=== PATIENT | female | born 1935 | race Caucasian/White ===

== ENCOUNTER 2018-09-14 11:27 | Emergency (ER) | payer MEDICARE, OTHER ==
[~2018-09-14 11:27] MED LIST: AVAPRO300 M1 PO; CITALOPRAM40 MG PO; CLOPIDOGREL75 MG PO; DILTIAZEM ER240 MG PO; LEVAQUIN 5500 MG/TA1 PO; LEVOTHYROXIN0.125 MG PO; PANTOPRAZOLE SO40 MG PO; PERDIEM15 MG PO; SYNTHROID0.1 MG/TAB PO; VITAMIN B-121 TAB PO; VITAMIN D5000 I1 PO; ZANTAC300 MG PO
[2018-09-14] MEDS ORDERED: MEMANTINE HCL10 MG PO (12:00)
[2018-09-14] MEDS ORDERED: METOPROLOL SUCC25 M1 PO (12:01)
[2018-09-14] MEDS ORDERED: PROAIR HFA0.09 MG/AC IH (12:02)
[2018-09-14] MEDS ORDERED: ROSUVASTATIN CA20 MG PO (12:02)
[2018-09-14] MEDS ORDERED: FLUTICASON0.05 MG/Ac NS (12:02)
[2018-09-14] MEDS ORDERED: OCUVITE TABLET1 TAB PO (12:03)
[2018-09-14] MEDS ORDERED: ASPIRIN ADULT L81 M3 PO (12:03)
[2018-09-14] MEDS ORDERED: FIBER500 MG (12:04)
[2018-09-14] MEDS ORDERED: MIRALAX17 GM PO (12:05)
[2018-09-14] MEDS ORDERED: LEVOTHYROXIN0.088 MG PO (12:05)
[2018-09-14] MEDS ORDERED: APRESOLINE 25MG25 MG PO (12:05)
[2018-09-14] MEDS ORDERED: ISORDIL 20MG20 MG PO (12:05)
[2018-09-14 12:06] LABS: EOS # 0.1 (0.04-0.40); EOS % 2.1 % (1.0-5.0); HEMATOCRIT 38.5 % (37.0-47.0); HEMOGLOBIN 11.8 g/dL (12.5-16.0); MEAN CELL VOLUME 97 fl (78-100); MEAN CORPUSCULAR HEMOGLOBIN 30 pg (27-31); MEAN CORPUSCULAR HGB CONC 31 g/dL (33-37); MONO # 0.4 (0.20-0.80); NEU # 4.2 (1.40-6.50); PLATELET COUNT 150 K/mm3 (130-400); RED BLOOD COUNT 3.96 M/mm3 (4.10-5.30); RED CELL DISTRIBUTION WIDTH 16.6 % (11.5-14.5); WHITE BLOOD COUNT 5.4 K/mm3 (4.8-10.8)
[2018-09-14] MEDS ORDERED: FUROSEMIDE20 MG PO (12:06)
[2018-09-14] MEDS ORDERED: ELIQUIS2.5 MG PO (12:06)
[2018-09-14] MEDS ORDERED: DONEPEZIL HCL10 MG PO (12:06)
[2018-09-14 12:07] LABS: LYMPH# 0.7 (1.50-4.00)
[2018-09-14 12:22] LABS: ALBUMIN 3.9 g/dL (3.4-4.8); POTASSIUM 4.2 mmol/L (3.5-5.1)
[2018-09-14 12:23] LABS: CALCIUM 9.3 mg/dL (8.3-10.5)
[2018-09-14 12:24] LABS: TOTAL PROTEIN 6.6 g/dL (6.2-8.1)
[2018-09-14 12:26] LABS: TOTAL BILIRUBIN 0.8 mg/dL (0.2-1.2)
[2018-09-14 13:47] LABS: URINE APPEARANCE HAZY; URINE BILIRUBIN NEGATIVE (NEGATIVE); URINE BLOOD NEGATIVE (NEGATIVE); URINE COLOR YELLOW; URINE GLUCOSE NEGATIVE (NEGATIVE); URINE KETONE NEGATIVE (NEGATIVE); URINE LEUKOCYTE ESTERASE 1+ (NEGATIVE); URINE NITRATE NEGATIVE (NEGATIVE); URINE PROTEIN(semi-quant) NEGATIVE (NEGATIVE); URINE UROBILINOGEN NORMAL (NORMAL)
[2018-09-14 13:48] LABS: URINE WBC >50 /hpf (0-3)
[2018-09-14] MEDS ORDERED: CEFDINIR300 MG PO (14:00)
[2018-09-14 14:21] VITALS: BP 136/63
== END 2018-09-14 14:22 | disposition home or self-care (01) ==
LOC: ED 11:27
PROVIDERS: Nurse Practitioner Family
DX: N30.00 Acute cystitis without hematuria (principal); E86.0 Dehydration; K74.60 Unspecified cirrhosis of liver; Z90.710 Acquired absence of both cervix and uterus; Z90.49 Acquired absence of other specified parts of digestive tract; Z90.89 Acquired absence of other organs; Z98.890 Other specified postprocedural states
CPT/HCPCS: J7030

== ENCOUNTER 2018-09-30 15:10 | Emergency (ER) | payer MEDICARE, OTHER ==
[~2018-09-30] VITALS: Wt 55.3 kg
[~2018-09-30 15:10] MED LIST changes: +APRESOLINE 25MG25 MG PO; +ASPIRIN ADULT L81 M3 PO; +CEFDINIR300 MG PO; +DONEPEZIL HCL10 MG PO; +ELIQUIS2.5 MG PO; +FIBER500 MG; +FLUTICASON0.05 MG/Ac NS; +FUROSEMIDE20 MG PO; +ISORDIL 20MG20 MG PO; +LEVOTHYROXIN0.088 MG PO; +MEMANTINE HCL10 MG PO; +METOPROLOL SUCC25 M1 PO; +MIRALAX17 GM PO; +OCUVITE TABLET1 TAB PO; +PROAIR HFA0.09 MG/AC IH; +ROSUVASTATIN CA20 MG PO
[2018-09-30] MEDS ORDERED: LISINOPRIL10 MG PO (15:50)
[2018-09-30 15:51] LABS: EOS # 0.2 (0.04-0.40); EOS % 2.4 % (1.0-5.0); HEMATOCRIT 36.1 % (37.0-47.0); HEMOGLOBIN 11.1 g/dL (12.5-16.0); LYMPH# 1.1 (1.50-4.00); MEAN CELL VOLUME 98 fl (78-100); MEAN CORPUSCULAR HEMOGLOBIN 30 pg (27-31); MEAN CORPUSCULAR HGB CONC 31 g/dL (33-37); MEAN PLATELET VOLUME 10.9 fl (7.4-10.4); MONO # 0.6 (0.20-0.80); NEU # 4.8 (1.40-6.50); PLATELET COUNT 140 K/mm3 (130-400); RED CELL DISTRIBUTION WIDTH 15.7 % (11.5-14.5); WHITE BLOOD COUNT 6.8 K/mm3 (4.8-10.8)
[2018-09-30] MEDS ORDERED: COLESTID 1GM1 G PO (15:51)
[2018-09-30 15:54] LABS: ALBUMIN 3.5 g/dL (3.4-4.8); POTASSIUM 3.9 mmol/L (3.5-5.1); SODIUM 139 mmol/L (136-145)
[2018-09-30 15:55] LABS: CALCIUM 8.8 mg/dL (8.3-10.5)
[2018-09-30 15:57] LABS: GLUCOSE 106 mg/dL (65-105); TOTAL PROTEIN 5.8 g/dL (6.2-8.1)
[2018-09-30 15:58] LABS: CARBON DIOXIDE 23 mmol/L (23-31); TOTAL BILIRUBIN 0.4 mg/dL (0.2-1.2)
[2018-09-30 16:02] LABS: AST-SGOT 74 U/L (5-34)
[2018-09-30 16:04] LABS: ALT/SGPT 61 U/L (0-55)
[2018-09-30 16:29] LABS: TROPONIN-I < 0.03 ng/mL (<0.030)
[2018-09-30 16:43] LABS: LIPASE 138 U/L (8-78)
[2018-09-30 16:47] LABS: D-DIMER 0.78 mg/L FEU (0.15-0.50)
[2018-09-30 17:09] LABS: URINE APPEARANCE CLOUDY; URINE BILIRUBIN NEGATIVE (NEGATIVE); URINE COLOR YELLOW; URINE GLUCOSE NEGATIVE (NEGATIVE); URINE KETONE NEGATIVE (NEGATIVE); URINE NITRATE POSITIVE (NEGATIVE); URINE PROTEIN(semi-quant) TRACE mg/dL (NEGATIVE); URINE UROBILINOGEN NORMAL (NORMAL)
[2018-09-30 17:10] LABS: URINE BLOOD NEGATIVE (NEGATIVE); URINE LEUKOCYTE ESTERASE TRACE (NEGATIVE); URINE MUCUS PRESENT (NOT PRESENT)
[2018-09-30 19:17] VITALS: BP 134/73
== END 2018-09-30 18:58 | disposition short-term general hospital (02) ==
LOC: ED 15:10
PROVIDERS: Nurse Practitioner Family
DX: I95.9 Hypotension, unspecified (principal); N39.0 Urinary tract infection, site not specified; I50.9 Heart failure, unspecified
CPT/HCPCS: A4216; J0696; J2270; J7030

== ENCOUNTER → 2018-10-28 | Outpatient (CLI) | payer MEDICARE, OTHER ==
[2018-09-30 19:17] VITALS: BP 134/73
[~2018-10-28] MED LIST changes: +COLESTID 1GM1 G PO; +LISINOPRIL10 MG PO
[2018-10-28 09:36] LABS: POTASSIUM 4.1 mmol/L (3.5-5.1)
[2018-10-28 09:37] LABS: CALCIUM 9.3 mg/dL (8.3-10.5)
[2018-10-28 09:38] LABS: TOTAL PROTEIN 6.8 g/dL (6.2-8.1)
[2018-10-28 09:40] LABS: TOTAL BILIRUBIN 0.8 mg/dL (0.2-1.2)
[2018-10-28 10:10] LABS: URINE APPEARANCE CLEAR; URINE BILIRUBIN NEGATIVE (NEGATIVE); URINE BLOOD NEGATIVE (NEGATIVE); URINE COLOR YELLOW; URINE GLUCOSE NEGATIVE (NEGATIVE); URINE KETONE NEGATIVE (NEGATIVE); URINE LEUKOCYTE ESTERASE NEGATIVE (NEGATIVE); URINE NITRATE NEGATIVE (NEGATIVE); URINE PROTEIN(semi-quant) TRACE mg/dL (NEGATIVE); URINE UROBILINOGEN NORMAL (NORMAL)
[2018-10-28 10:11] LABS: URINE MUCUS PRESENT (NOT PRESENT)
== END ==
LOC: LAB 09:02
PROVIDERS: Internal Medicine
DX: I70.0 Atherosclerosis of aorta (principal); Z98.890 Other specified postprocedural states; I25.10 Atherosclerotic heart disease of native coronary artery without angina pectoris; I10 Essential (primary) hypertension; E03.9 Hypothyroidism, unspecified; M48.062 Spinal stenosis, lumbar region with neurogenic claudication

== ENCOUNTER 2018-12-23 17:13 | Emergency (ER) | payer MEDICARE, OTHER ==
[~2018-12-23] VITALS: Wt 52.9 kg
[2018-12-23 18:00] LABS: BASO # 0.1 (0.02-0.10); EOS # 0.2 (0.04-0.40); EOS % 4.4 % (1.0-5.0); HEMATOCRIT 37.9 % (37.0-47.0); HEMOGLOBIN 11.9 g/dL (12.5-16.0); LYMPH# 0.9 (1.50-4.00); MEAN CELL VOLUME 97 fl (78-100); MEAN CORPUSCULAR HEMOGLOBIN 31 pg (27-31); MEAN CORPUSCULAR HGB CONC 31 g/dL (33-37); MEAN PLATELET VOLUME 10.9 fl (7.4-10.4); MONO # 0.6 (0.20-0.80); NEU # 3.5 (1.40-6.50); PLATELET COUNT 154 K/mm3 (130-400); RED BLOOD COUNT 3.89 M/mm3 (4.10-5.30); RED CELL DISTRIBUTION WIDTH 13.2 % (11.5-14.5); WHITE BLOOD COUNT 5.2 K/mm3 (4.8-10.8)
[2018-12-23 18:09] LABS: ALBUMIN 3.7 g/dL (3.4-4.8); POTASSIUM 3.9 mmol/L (3.5-5.1)
[2018-12-23 18:10] LABS: CALCIUM 9.1 mg/dL (8.3-10.5)
[2018-12-23 18:11] LABS: TOTAL PROTEIN 6.6 g/dL (6.2-8.1)
[2018-12-23 18:13] LABS: PARTIAL THROMBOPLASTIN TIME 24.3 SECONDS (21.0-32.0); PROTHROMBIN TIME 10.3 SECONDS (9.0-12.0); TOTAL BILIRUBIN 0.5 mg/dL (0.2-1.2)
[2018-12-23 18:24] LABS: TROPONIN-I 0.06 ng/mL (<0.030)
[2018-12-23 20:24] LABS: URINE COLOR YELLOW
[2018-12-23 20:25] LABS: URINE APPEARANCE HAZY; URINE BILIRUBIN NEGATIVE (NEGATIVE); URINE BLOOD NEGATIVE (NEGATIVE); URINE GLUCOSE NEGATIVE (NEGATIVE); URINE KETONE NEGATIVE (NEGATIVE); URINE LEUKOCYTE ESTERASE TRACE (NEGATIVE); URINE NITRATE POSITIVE (NEGATIVE); URINE PROTEIN(semi-quant) TRACE mg/dL (NEGATIVE); URINE UROBILINOGEN NORMAL (NORMAL)
[2018-12-23 20:39] LABS: D-DIMER 0.94 mg/L FEU (0.15-0.50)
[2018-12-23 20:54] LABS: CKMB ISOENZYME 1.1 ng/mL (0.0-3.5)
[2018-12-23 22:15] VITALS: BP 131/67
== END 2018-12-23 22:15 | disposition short-term general hospital (02) ==
LOC: ED 17:13
PROVIDERS: Nurse Practitioner Family
DX: S09.90XA Unspecified injury of head, initial encounter (principal); I13.0 Hypertensive heart and chronic kidney disease with heart failure and stage 1 through stage 4 chronic kidney disease, or unspecified chronic kidney disease; I50.9 Heart failure, unspecified; N18.9 Chronic kidney disease, unspecified; N39.0 Urinary tract infection, site not specified; E86.0 Dehydration; R40.2410 Glasgow coma scale score 13-15, unspecified time; I25.10 Atherosclerotic heart disease of native coronary artery without angina pectoris; G47.33 Obstructive sleep apnea (adult) (pediatric); F03.90 Unspecified dementia, unspecified severity, without behavioral disturbance, psychotic disturbance, mood disturbance, and anxiety; Z95.1 Presence of aortocoronary bypass graft; Z98.890 Other specified postprocedural states; Z95.2 Presence of prosthetic heart valve; Z95.0 Presence of cardiac pacemaker; Z79.01 Long term (current) use of anticoagulants; Z87.891 Personal history of nicotine dependence; W19.XXXA Unspecified fall, initial encounter; Y92.009 Unspecified place in unspecified non-institutional (private) residence as the place of occurrence of the external cause
CPT/HCPCS: A4216; J0696; J2270; J7030

== ENCOUNTER 2019-01-31 13:42 | Emergency (ER) | payer MEDICARE, OTHER ==
[~2019-01-31] VITALS: Wt 56.8 kg
[2019-01-31 14:22] LABS: EOS # 0.1 (0.04-0.40); EOS % 1.1 % (1.0-5.0); HEMATOCRIT 37.4 % (37.0-47.0); HEMOGLOBIN 11.4 g/dL (12.5-16.0); LYMPH# 1.5 (1.50-4.00); MEAN CELL VOLUME 99 fl (78-100); MEAN CORPUSCULAR HEMOGLOBIN 30 pg (27-31); MEAN CORPUSCULAR HGB CONC 31 g/dL (33-37); MEAN PLATELET VOLUME 10.7 fl (7.4-10.4); NEU # 5.7 (1.40-6.50); PLATELET COUNT 152 K/mm3 (130-400); RED BLOOD COUNT 3.78 M/mm3 (4.10-5.30); RED CELL DISTRIBUTION WIDTH 15.3 % (11.5-14.5); WHITE BLOOD COUNT 8.3 K/mm3 (4.8-10.8)
[2019-01-31 14:35] LABS: ALBUMIN 3.7 g/dL (3.4-4.8)
[2019-01-31 14:36] LABS: CALCIUM 8.9 mg/dL (8.3-10.5)
[2019-01-31 14:37] LABS: TOTAL PROTEIN 6.4 g/dL (6.2-8.1)
[2019-01-31 14:39] LABS: TOTAL BILIRUBIN 2.4 mg/dL (0.2-1.2)
[2019-01-31 16:50] LABS: TROPONIN-I 0.04 ng/mL (<0.030)
[2019-01-31 19:02] VITALS: BP 118/70
== END 2019-01-31 19:02 | disposition short-term general hospital (02) ==
LOC: ED 13:42
PROVIDERS: Nurse Practitioner Primary Care
DX: K52.89 Other specified noninfective gastroenteritis and colitis (principal); R94.5 Abnormal results of liver function studies; I11.0 Hypertensive heart disease with heart failure; I50.9 Heart failure, unspecified; I25.10 Atherosclerotic heart disease of native coronary artery without angina pectoris; I25.2 Old myocardial infarction; Z86.73 Personal history of transient ischemic attack (TIA), and cerebral infarction without residual deficits; Z90.49 Acquired absence of other specified parts of digestive tract; Z90.710 Acquired absence of both cervix and uterus
CPT/HCPCS: J2270; J2405; J7030; Q9967

== ENCOUNTER → 2019-02-14 | Outpatient (CLI) | payer MEDICARE, OTHER ==
[2019-01-31 19:02] VITALS: BP 118/70
[2019-02-14 16:08] LABS: EOS # 0.1 (0.04-0.40); EOS % 2.3 % (1.0-5.0); HEMATOCRIT 38.1 % (37.0-47.0); HEMOGLOBIN 11.5 g/dL (12.5-16.0); MEAN CELL VOLUME 98 fl (78-100); MEAN CORPUSCULAR HEMOGLOBIN 30 pg (27-31); MEAN CORPUSCULAR HGB CONC 30 g/dL (33-37); MEAN PLATELET VOLUME 10.2 fl (7.4-10.4); MONO # 0.5 (0.20-0.80); NEU # 4.1 (1.40-6.50); PLATELET COUNT 191 K/mm3 (130-400); RED CELL DISTRIBUTION WIDTH 15.1 % (11.5-14.5); WHITE BLOOD COUNT 5.7 K/mm3 (4.8-10.8)
[2019-02-14 16:17] LABS: ALBUMIN 3.7 g/dL (3.4-4.8)
[2019-02-14 16:18] LABS: POTASSIUM 3.6 mmol/L (3.5-5.1)
[2019-02-14 16:20] LABS: TOTAL PROTEIN 6.5 g/dL (6.2-8.1)
== END ==
LOC: LAB 15:49
PROVIDERS: Internal Medicine
DX: I25.10 Atherosclerotic heart disease of native coronary artery without angina pectoris (principal); I10 Essential (primary) hypertension; E03.9 Hypothyroidism, unspecified; M48.062 Spinal stenosis, lumbar region with neurogenic claudication

== ENCOUNTER → 2019-05-02 | Outpatient (CLI) | payer MEDICARE, OTHER ==
[2019-05-02 16:58] LABS: POTASSIUM 5.1 mmol/L (3.5-5.1)
[2019-05-02 17:00] LABS: CALCIUM 9.4 mg/dL (8.3-10.5)
[2019-05-02 17:06] LABS: MAGNESIUM 2.21 mg/dL (1.60-2.60)
== END ==
LOC: LAB 16:33
PROVIDERS: Internal Medicine
DX: I43 Cardiomyopathy in diseases classified elsewhere (principal); I25.10 Atherosclerotic heart disease of native coronary artery without angina pectoris

== ENCOUNTER → 2019-05-10 | Outpatient (CLI) | payer MEDICARE, OTHER ==
[2019-05-10 17:37] LABS: CALCIUM 9.3 mg/dL (8.3-10.5)
[2019-05-10 17:43] LABS: MAGNESIUM 2.01 mg/dL (1.60-2.60)
== END ==
LOC: LAB 16:59
PROVIDERS: Internal Medicine
DX: I25.10 Atherosclerotic heart disease of native coronary artery without angina pectoris (principal); I43 Cardiomyopathy in diseases classified elsewhere

== ENCOUNTER → 2019-06-27 | Outpatient (CLI) | payer MEDICARE, OTHER ==
[2019-06-27 14:27] LABS: POTASSIUM 4.6 mmol/L (3.5-5.1)
[2019-06-27 14:28] LABS: CALCIUM 9.3 mg/dL (8.3-10.5)
[2019-06-27 14:35] LABS: MAGNESIUM 2.16 mg/dL (1.60-2.60)
== END ==
LOC: LAB 13:58
PROVIDERS: Internal Medicine
DX: I25.10 Atherosclerotic heart disease of native coronary artery without angina pectoris (principal); I43 Cardiomyopathy in diseases classified elsewhere

== ENCOUNTER → 2019-07-18 | Outpatient (CLI) | payer MEDICARE, OTHER ==
[2019-07-18 17:43] LABS: ALBUMIN 3.7 g/dL (3.4-4.8); POTASSIUM 5.1 mmol/L (3.5-5.1)
[2019-07-18 17:46] LABS: TOTAL PROTEIN 6.2 g/dL (6.2-8.1)
[2019-07-18 17:47] LABS: TOTAL BILIRUBIN 0.4 mg/dL (0.2-1.2)
[2019-07-18 17:52] LABS: MAGNESIUM 2.26 mg/dL (1.60-2.60)
[2019-07-18 17:59] LABS: EOS # 0.2 (0.04-0.40); EOS % 2.6 % (1.0-5.0); HEMATOCRIT 37.7 % (37.0-47.0); HEMOGLOBIN 11.8 g/dL (12.5-16.0); LYMPH# 1.1 (1.50-4.00); MEAN CELL VOLUME 101 fl (78-100); MEAN CORPUSCULAR HEMOGLOBIN 32 pg (27-31); MEAN CORPUSCULAR HGB CONC 31 g/dL (33-37); MEAN PLATELET VOLUME 10.7 fl (7.4-10.4); MONO # 0.5 (0.20-0.80); PLATELET COUNT 117 K/mm3 (130-400); RED BLOOD COUNT 3.74 M/mm3 (4.10-5.30); RED CELL DISTRIBUTION WIDTH 12.8 % (11.5-14.5); WHITE BLOOD COUNT 5.8 K/mm3 (4.8-10.8)
== END ==
LOC: LAB 17:09
PROVIDERS: Internal Medicine
DX: M48.062 Spinal stenosis, lumbar region with neurogenic claudication (principal); M85.89 Other specified disorders of bone density and structure, multiple sites; E03.9 Hypothyroidism, unspecified; I10 Essential (primary) hypertension; I25.10 Atherosclerotic heart disease of native coronary artery without angina pectoris

== ENCOUNTER → 2019-08-16 | Outpatient (CLI) | payer MEDICARE, OTHER ==
[2019-08-16 17:59] LABS: POTASSIUM 4.4 mmol/L (3.5-5.1)
[2019-08-16 18:00] LABS: CALCIUM 9.1 mg/dL (8.3-10.5)
[2019-08-16 18:07] LABS: MAGNESIUM 2.23 mg/dL (1.60-2.60)
== END ==
LOC: LAB 17:10
PROVIDERS: Internal Medicine
DX: I25.10 Atherosclerotic heart disease of native coronary artery without angina pectoris (principal); I42.9 Cardiomyopathy, unspecified

== ENCOUNTER → 2019-10-13 | Outpatient (CLI) | payer MEDICARE, OTHER ==
[2019-10-13 17:02] LABS: POTASSIUM 4.5 mmol/L (3.5-5.1)
[2019-10-13 17:03] LABS: CALCIUM 9.3 mg/dL (8.3-10.5)
[2019-10-13 17:04] LABS: TOTAL PROTEIN 7.3 g/dL (6.2-8.1)
[2019-10-13 17:06] LABS: TOTAL BILIRUBIN 0.4 mg/dL (0.2-1.2)
[2019-10-13 17:08] LABS: EOS # 0.2 (0.04-0.40); EOS % 2.3 % (1.0-5.0); HEMATOCRIT 39.2 % (37.0-47.0); HEMOGLOBIN 12.6 g/dL (12.5-16.0); LYMPH# 1.3 (1.50-4.00); MEAN CELL VOLUME 102 fl (78-100); MEAN CORPUSCULAR HEMOGLOBIN 33 pg (27-31); MEAN CORPUSCULAR HGB CONC 32 g/dL (33-37); MEAN PLATELET VOLUME 10.5 fl (7.4-10.4); MONO # 0.7 (0.20-0.80); NEU # 4.7 (1.40-6.50); PLATELET COUNT 159 K/mm3 (130-400); RED BLOOD COUNT 3.86 M/mm3 (4.10-5.30); RED CELL DISTRIBUTION WIDTH 13.1 % (11.5-14.5); WHITE BLOOD COUNT 6.9 K/mm3 (4.8-10.8)
[2019-10-13 17:11] LABS: MAGNESIUM 2.3 mg/dL (1.60-2.60)
== END ==
LOC: LAB 16:38
PROVIDERS: Internal Medicine
DX: I25.10 Atherosclerotic heart disease of native coronary artery without angina pectoris (principal); I10 Essential (primary) hypertension; E03.4 Atrophy of thyroid (acquired); M48.062 Spinal stenosis, lumbar region with neurogenic claudication

== ENCOUNTER → 2019-12-22 | Outpatient (CLI) | payer MEDICARE, OTHER ==
[2019-12-22 15:37] LABS: EOS # 0.4 (0.04-0.40); EOS % 5.9 % (1.0-5.0); HEMATOCRIT 40.5 % (37.0-47.0); HEMOGLOBIN 12.5 g/dL (12.5-16.0); LYMPH# 1.1 (1.50-4.00); MEAN CELL VOLUME 103 fl (78-100); MEAN CORPUSCULAR HEMOGLOBIN 32 pg (27-31); MEAN CORPUSCULAR HGB CONC 31 g/dL (33-37); MEAN PLATELET VOLUME 10.3 fl (7.4-10.4); MONO # 0.7 (0.20-0.80); NEU # 4.3 (1.40-6.50); PLATELET COUNT 141 K/mm3 (130-400); RED BLOOD COUNT 3.94 M/mm3 (4.10-5.30); RED CELL DISTRIBUTION WIDTH 12.6 % (11.5-14.5); WHITE BLOOD COUNT 6.6 K/mm3 (4.8-10.8)
[2019-12-22 15:42] LABS: ALBUMIN 3.6 g/dL (3.4-4.8); POTASSIUM 4.2 mmol/L (3.5-5.1)
[2019-12-22 15:45] LABS: TOTAL PROTEIN 6.4 g/dL (6.2-8.1)
[2019-12-22 15:47] LABS: TOTAL BILIRUBIN 0.4 mg/dL (0.2-1.2)
[2019-12-22 15:51] LABS: MAGNESIUM 2.42 mg/dL (1.60-2.60)
[2019-12-22 16:12] LABS: URINE APPEARANCE HAZY; URINE COLOR YELLOW
[2019-12-22 16:13] LABS: URINE BILIRUBIN NEGATIVE (NEGATIVE); URINE BLOOD NEGATIVE (NEGATIVE); URINE GLUCOSE NEGATIVE (NEGATIVE); URINE KETONE NEGATIVE (NEGATIVE); URINE LEUKOCYTE ESTERASE TRACE (NEGATIVE); URINE NITRATE POSITIVE (NEGATIVE); URINE PROTEIN(semi-quant) TRACE mg/dL (NEGATIVE); URINE UROBILINOGEN NORMAL (NORMAL)
== END ==
LOC: LAB 15:03
PROVIDERS: Internal Medicine
DX: I25.10 Atherosclerotic heart disease of native coronary artery without angina pectoris (principal); M48.062 Spinal stenosis, lumbar region with neurogenic claudication; N30.00 Acute cystitis without hematuria; I10 Essential (primary) hypertension; E03.9 Hypothyroidism, unspecified